=== PATIENT | male | born 2000 | race Native Hawaiian/Other Pacific Islander ===

== ENCOUNTER 2018-01-10 10:43 | Observation (INO) | payer BC ==
[~2018-01-10] VITALS: Ht 180.3 cm; Wt 65.5 kg
[2018-01-10 14:03] LABS: POTASSIUM 3.7 mmol/L (3.6-5.2)
[2018-01-10 14:09] LABS: PLATELET COUNT 254 K/uL (142-355)
[2018-01-10 19:13] VITALS: BP 130/61; TEMP 98.5; Ht 180.3 cm; Wt 65.5 kg
[2018-01-10 20:00] VITALS: BP 123/67; TEMP 98.2
[2018-01-11 00:10] VITALS: BP 112/62; TEMP 97.9
[2018-01-11 04:12] VITALS: BP 102/61; TEMP 97.9
[2018-01-11 08:00] VITALS: BP 116/62; TEMP 98
[2018-01-11 12:00] VITALS: BP 128/70; TEMP 98
[2018-01-11 16:00] VITALS: BP 108/65; TEMP 98.3
[2018-01-11 20:00] VITALS: BP 122/69; TEMP 98.3
[2018-01-12] VITALS: BP 99/52; TEMP 97.9
[2018-01-12 04:00] VITALS: BP 108/57; TEMP 98.1
[2018-01-12 08:00] VITALS: BP 110/56; TEMP 97.6
[2018-01-12 12:00] VITALS: BP 123/69; TEMP 98.3
== END 2018-01-12 13:00 | disposition home or self-care (01) ==
LOC: MED/SURG 10:43
PROVIDERS: ADMIT Pediatrics
DX: L02.413 Cutaneous abscess of right upper limb (principal); L03.113 Cellulitis of right upper limb
CPT/HCPCS: 36415; 80048; 80202; 85027; 87040; 96365; 96366; 96367; 96374; 99220; G0378; G0379